=== PATIENT | male | born 1960 | race Caucasian/White ===

== ENCOUNTER 2016-03-27 07:01 | Inpatient (IN) | payer OTHER ==
--- NOTE | 2016-03-22 09:02 | PREOPHP ---
DATE OF ADMISSION: 03/27/2016 PREOPERATIVE INTERNAL MEDICINE CONSULTATION/MEDICAL HISTORY AND PHYSICAL Patient to have surgery with Dr. Armando Velazquez on 03/27/2016. REASON FOR CONSULTATION: Consultation requested by Dr. Armando Velazquez for medical evaluation and cl earance of a 55-year-old gentleman about to undergo surgery on his lumbar spine. Thank you, Dr. Velazquez, for allowing us to participate in the care of this patient. HISTORY OF PRESENT ILLNESS: Pillo Atkins, a 55-year-old gentleman, long-term problems with his back has had 2 prior back surgeries. This time will be readmitted for more definitive back surgery. Oth er than his back he has also had right shoulder surgery x3 with open surgery, left shoulder surgery x2, both arthroscopic. He has needed surgery on his right wrist following a fracture and has had silva e other fractures as well. He has had no medical hospitalizations, has been generally healthy. MEDICATIONS: Other than: 1. [place]. 2. Flexeril. 3. Gabapentin, all being taken for his pain. He takes no other chronic medications. ALLERGIES: HE IS "ALLERGIC" or SENSITIVE TO 1. CODEINE. 2. SULFA. FAMILY HISTORY: Patient's father is alive at 88 and is healthy. Mother at 67 of COPD, was a h eavy smoker. Five siblings in good health. He knows of no significant family history of diabetes, heart, cancer, hypertension or stroke. SOCIAL HISTORY: The patient is , has no children. He does not smoke. Alcohol socially. Do es not drink coffee. Has no difficulty sleeping at night other than due to his pain and works as a construction millwright. REVIEW OF SYSTEMS HEENT: Denies any significant headaches. CARDIORESPIRATORY: Denies any chest pain or shortness of breath. GASTROINTESTINAL: No melena or hematemesis. GENITOURINARY: No urgency, frequency. MUSCULOSKELETAL: Positive for back pain. NEUROPSYCHIATRIC: Unremarkable. GENERAL HEALTH: As above. PHYSICAL EXAMINATION: VITAL SIGNS: The patient's blood pressure was 104/76, pulse was 80 and regular, respirations 18, te mperature 98.3, height 5 feet 10 1/2 inches, weight 154 pounds. GENERAL: The patient was noted to be a well-developed, well-nourished male, alert and cooperative, in no apparent acute distress, oriented to time, place and person. HEAD, EARS, EYES, NOSE AND THROAT: Head was atraumatic. Eyes: Pupils were equal, reactive to ligh t and accommodation. Fundi were benign. Tympanic membranes were unremarkable. Nose was negative. Mouth was unremarkable. Fair oral hygiene was present. NECK: Supple without any rigidity. Trachea was midline. Thyroid was unremarkable. Neck veins wer e flat. Carotid pulses were equal. No bruits were heard. BACK: Unremarkable other than scar from prior surgery and some typing of his muscles. CHEST: Symmetrical. BREASTS AND AXILLARY: Did not reveal any masses. LUNGS: Clear to percussion and auscultation. HEART: PMI was 5th intercostal space at the midclavicular line. Regular sinus rhythm was noted. N o significant murmurs, rubs, or gallops being elicited. ABDOMEN: Soft, good bowel sounds were noted. No significant organomegaly, masses, or tenderness. GENITALIA: Normal male external genitalia. RECTAL AND PROSTATIC: Per PCP. EXTREMITIES: Did not reveal any clubbing, edema or cyanosis. Scar right armpit was noted from [facility] surgery. Peripheral pulses were physiologic. SKIN: Moist and warm without any eruptions. No gross lymphadenopathy was noted. NEUROLOGIC: Grossly intact. IMPRESSION 1. Lumbar disk disease L3-L4, L4-L5. 2. Degenerative joint disease. 3. Stable health. LABORATORY DATA: Review of laboratory and other data revealed the following: The patient's medical chemist ry panel revealed normal electrolytes, random glucose of 107, normal BUN and creatinine and liver fu nction tests, CBC, UA, PT, PTT were normal. The patient's EKG was normal as was his chest x-ray. DISCUSSION: Dr. Velazquez, I see no contraindication in this patient undergoing current proposed bekah meli under desired form of anesthesia and feel he is a suitable candidate at this particular point i n time, we will be more than happy to follow him with you during his stay at [facility]. Thank you again, Dr. Velazquez, for allowing us to participate in care of this patient. Dictated By: CITLALI MCKINNON/AVA Conf#: [id number] DID#: [id number]
[2016-03-27] VITALS (28 sets, daily range): BP systolic 101–149; BP diastolic 63–85; PULSE 63–108; RESP 6–19; Ht 177.8 cm; Wt 70.0 kg
[~2016-03-27] VITALS: Ht 177.8 cm; Wt 70.0 kg
[2016-03-27] MEDS ORDERED: CYCL5TAB PO (08:39)
[2016-03-27] MEDS ORDERED: GABA100C14 PO (08:39)
[2016-03-27] MEDS ORDERED: HYDR-906 PO (08:39)
[2016-03-27] MEDS ORDERED: CEFAZOLIN 2 GM/50 ML (PMX) 50 ML IVPB SCH (09:30)
[2016-03-27] MEDS ORDERED: BUPIVACAINE 0.25% (MPF) 10 ML 10 ML VIAL ONE (09:49)
[2016-03-27] MEDS ORDERED: GELATIN SIZE 100 SPONGE ONE (09:49)
[2016-03-27] MEDS ORDERED: THROMBIN 5000 UNIT VIAL ONE ×2 (09:49→13:35)
[2016-03-27] MEDS ORDERED: HEPARIN 1000 UNITS/ML 10 ML INJ ONE (09:49)
[2016-03-27] MEDS ORDERED: CEFAZOLIN 1 GM INJ ONE (09:51)
[2016-03-27] MEDS ORDERED: HYDROmorphONE 2 MG/ML SYG ONE (10:01)
[2016-03-27] MEDS ORDERED: PROPOFOL 20 ML ONE ×4 (10:01→14:03)
[2016-03-27] MEDS ORDERED: MIDAZOLAM 1 MG/ML 2 ML INJ ONE (10:01)
[2016-03-27] MEDS ORDERED: ROCURONIUM 50 MG INJ ONE ×2 (10:01→10:49)
[2016-03-27] MEDS ORDERED: ONDANSETRON 4 MG INJ ONE ×2 (10:02→16:26)
[2016-03-27] MEDS ORDERED: METOPROLOL 5 MG INJ ONE (10:27)
[2016-03-27] MEDS ORDERED: LABETALOL HCL 20MG INJ ONE (11:14)
[2016-03-27] MEDS ORDERED: hydrALAzine 20 MG INJ ONE (11:20)
[2016-03-27] MEDS ORDERED: FENTAnyl 50 MCG/ML VIAL ONE (11:20)
[2016-03-27] MEDS ORDERED: MEPERIDINE 25 MG INJ ONE (16:24)
[2016-03-27] MEDS ORDERED: HYDROmorphONE (0.2 MG/ML) 10ML SYG IV ONE (16:24)
--- NOTE | 2016-03-27 16:24 | RADRPT ---
PROCEDURE: Intraoperative imaging of the lumbar spine with fluoroscopy. CLINICAL INDICATION: Back pain. Intraoperative. TECHNIQUE: 3 images of the lumbar spine were obtained in the operating room with an image intensif ier. No radiologist was in attendance. 52.8 seconds of fluoroscopy time was used. COMPARISON: No prior study is available for comparison. FINDINGS: For the purposes of this report, the last apparent true disc level is considered to be L5-S1. Based on this, images demonstrate posterior fusion with pedicle screws and connecting rods at L3, L4, L5. Intervertebral cages are present at L3-4 and L4-5. IMPRESSION: 1. Intraoperative imaging of the lumbar spine. RPTAT: QQ .Jaime Murray MD, Date Time Electronically viewed and signed by .Jaime Murray MD, on 03/27/2016 16:24 .R/
[2016-03-27] MEDS ORDERED: MEPERIDINE 25 MG INJ IV PRN (16:30)
[2016-03-27] MEDS ORDERED: HYDROmorphONE (0.2 MG/ML) 10ML SYG IV PRN (16:30)
[2016-03-27] MEDS ORDERED: ONDANSETRON 4 MG INJ IV PRN ×2 (16:30→17:00)
[2016-03-27] MEDS ORDERED: METOCLOPRAMIDE 10 MG INJ IV PRN (16:30)
[2016-03-27] MEDS ORDERED: LABETALOL HCL 20MG INJ IV PRN (16:30)
[2016-03-27] MEDS ORDERED: hydrALAzine 20 MG INJ IV PRN (16:30)
[2016-03-27] MEDS ORDERED: DIPHENHYDRAMINE 50 MG INJ IV PRN (16:30)
[2016-03-27] MEDS: DEXTROSE 5%-0.45% NACL 1,000 ML IV SCH (16:32)
[2016-03-27] MEDS: HYDROmorphONE (0.2 MG/ML) 10ML SYG IV PRN ×4 (16:36→17:13)
[2016-03-27] MEDS ORDERED: DIAZEPAM 5 MG/ML SYG IM PRN (17:00)
[2016-03-27] MEDS ORDERED: TRIMETHOBENZAMIDE 100 MG/ML VIAL IM PRN (17:00)
[2016-03-27] MEDS ORDERED: NACL 0.9% 3 ML SYG IV SCH (17:00)
[2016-03-27] MEDS ORDERED: CEPASTAT LOZENGE MT PRN (17:00)
[2016-03-27] MEDS ORDERED: PROCHLORPERAZINE 10 MG TAB PO PRN (17:00)
[2016-03-27] MEDS ORDERED: AL HYDROX/MG HYDROX/SIMETH 30 ML CUP PO PRN (17:00)
[2016-03-27] MEDS ORDERED: HYDROCODONE/APAP (5/325) TAB PO PRN (17:00)
[2016-03-27] MEDS ORDERED: HYDROmorphONE 0.2 MG/ML PCA IV SCH (17:00)
[2016-03-27] MEDS ORDERED: DIPHENHYDRAMINE 50 MG CAP PO PRN (17:00)
[2016-03-27] MEDS ORDERED: NALOXONE (0.4 MG/ML) INJ IV PRN (17:00)
[2016-03-27] MEDS ORDERED: ACETAMINOPHEN 325 MG TAB PO PRN (17:00)
[2016-03-27] MEDS ORDERED: ZOLPIDEM 5 MG TAB PO PRN (17:00)
[2016-03-27] MEDS ORDERED: BETHANECHOL 25 MG TAB PO PRN (17:00)
--- NOTE | 2016-03-27 17:33 | CONS ---
DATE OF ADMISSION: 03/27/2016 DATE OF CONSULTATION: 03/27/2016 HISTORY OF PRESENT ILLNESS: Patient seen in the recovery room, arousable, not terribly alert as yet , but definitely arousable. PHYSICAL EXAMINATION VITAL SIGNS: Blood pressure of 108/65, pulse 72, respirations 16, temperature 98.8, O2 saturation 9 8% HEENT: Unremarkable. LUNGS: Clear. HEART: Regular rhythm. IMPRESSION 1. Status post lumbar spine surgery, L3-L4, L4-L5. 2. History of degenerative joint disease. 3. Stable health. DISCUSSION PLAN: Basic management, per Dr. Uribe and we will follow him along with you from a me dical standpoint during his stay at [facility]. Thank you again, Dr. Uribe, for allowing us to participate in the care of this patient. Dictated By: CITLALI FRASER MD SS/NTS Conf#: [id number] DID#: [id number] CC: JESSICA URIBE MD;*EndCC*
--- NOTE | 2016-03-27 17:44 | OPR ---
DATE OF OPERATION: 03/27/2016 PREOPERATIVE DIAGNOSIS: Degenerative disk disease at L3-4 and L4-L5 with foraminal stenosis and pos tsurgical changes. POSTOPERATIVE DIAGNOSIS: Degenerative disk disease at L3-4 and L4-L5 with foraminal stenosis and po stsurgical changes. OPERATION PERFORMED: 1. Transforaminal lumbar interbody fusion, L3-L4. 2. Transforaminal lumbar interbody fusion, L4-L5. 3. Segmental spinal fixation from L3-L5 using bilateral Alphatec pedicle screws and rods from L3-L5 . 4. Redo decompressive laminectomy at L3 and L4. 5. Placement of interbody cages at L3-L4 and L4-L5 with BMP (bone morphogenic protein) and local marcelino ne graft. 6. Revision of scar (15 cm). 7. AP and lateral intraoperative fluoroscopy. 8. Intraoperative nerve monitoring (6-1/2 hours) SURGEON: Armando Velazquez MD NEWS SPECIALIST: SHAYY Ferris ANESTHESIA: General endotracheal by Dr. Ulloa ESTIMATED BLOOD LOSS: 500 mL, none replaced. DRAINS: Two medium Hemovac drains employed. COMPLICATIONS: None. PERTINENT HISTORY AND PHYSICAL: This is a 55-year-old male who sustained an injury to his back in [employer] course of employment on 05/16/2010. He has had extensive care since that time, remains highly sy mptomatic with pain in his back and weakness and numbness in his left leg along with pain in his lef t leg. Treatment options were discussed with the patient, who elected to proceed with surgery. OPERATIVE FINDINGS AT SURGERY: Degenerative disk changes at L3-4 and L4-L5 with foraminal stenosis bilaterally was confirmed. The baseline intraoperative nerve monitoring revealed a decrease in the L2 potentials bilaterally of 10%, the L3 potentials bilaterally of 30%, the L4 potential on the left of 50%, the L4 potential on the right of 30%, the L5 potential on the left of 70%, the L5 potential on the right of 50%, and the S1 potentials bilaterally of 40%. At the completion of the surgery, t he nerve signals had improved to normal with exception of the left L5 nerve, which was still down 20 %, and there was no change in the S1 nerve potentials bilaterally. OPERATIVE PROCEDURE: With the patient in supine position after satisfactory induction of general en dotracheal anesthesia by Dr. Ulloa, the patient was positioned in the prone position on the rad iolucent Femi frame atop the OSI fluoroscopic table. All pressure points were carefully padded. Back was prepped and draped in usual sterile fashion. Athrombic pumps were applied to the legs belo w the knees to prevent venous stasis during and after the procedure. An indwelling Monet catheter w as also placed preoperatively to facilitate bladder drainage during and after the procedure. A 15 c m incision was made through the previous scar from L3 to L5 through skin and subcutaneous tissue to the deep fascia. Superficial retractors were placed and hemostasis secured with electrocautery. Th roughout the procedure, copious amounts of antibacterial irrigating solution were used to periodical ly irrigate the wound. The fascia was incised in midline with a hot knife and a bilateral subperios teal dissection carried out at L2 and L5. The spinous processes of L3 and L4 were absent from previ ous surgery. The dissection was then carried out to the lateral aspects of the canal and the facet joints at L3-4 and L4-5 bilaterally. Deep retractors were placed and deep hemostasis secured with e lectrocautery. An intraoperative lateral image was taken with the fluoroscope with a Aziza clamp p laced in what was felt to be the spinous process of L2 and L5. This was confirmed on the image. Wi th this having been assured, a subtotal facetectomy was carried out at L3-L4 bilaterally and L4-5 on the left. The operating microscope then moved into place. The L5 root was mobilized medially on t he left and protected with Boubacar nerve root retractor using microdissection technique. A 15 blad e knife used to cut a rectangular window in the annulus and posterior longitudinal ligament and mult iple degenerative disk fragments were harvested with pituitary rongeurs and sent to laboratory for p athologic study. The Alphatec disk hector were then inserted into the wound, starting with a 6 mm shaver and working up to a 10 mm shaver. The 6, 7, 8, 9, and subsequently 10 mm trials were then in serted into the disk space. The Alphatec rasps were then used to abrade the cartilaginous endplates down to subchondral bone. A 10 mm lordotic PEEK cage that was filled with half of a small bone mor phogenic protein pledget was placed into the disk space under direct vision after multiple morselize d pieces of bone were placed in the anterior aspect of the disk space. Attention then turned to the L3-4 disk where the identical procedure was carried out. However, at this level, an 11 mm lordotic PEEK cage was inserted into the disk space after multiple morselized pieces of bone were packed int o the anterior aspect of the disk space as well. The remaining half of the small unit of bone morph ogenic protein was placed into the cage at L3-4 and inserted into the disk space under direct vision . The position of the implants was monitored with AP and lateral intraoperative fluoroscopy. It wa s noted that the L4-5 implant was slightly tilted and probably embedded into the superior endplate o f L5. However, it appeared to be stable and did not merit removal. The pedicles of L3, L4, and L5 were then identified and then Alphatec variable angle, 5.5 mm wide x 40 mm long pedicle screws were placed into the pedicles of L3, L4, and L5 bilaterally. The Femi frame was lowered to its most co llapsed position and the 80 mm Alphatec lordotic rods were then placed into the tulip heads of the s crews from L3-L5. The L5 screws were secured initially with the torque wrench to factory specificat ions, and the remaining screws were secured sequentially while the construct was held in compression . At the completion of implantation, the AP and lateral final images were taken with the fluoroscop y machine. The anesthesiologist was then asked to perform a Valsalva maneuver at 40 mmHg. No spina l fluid leakage was noted. The redo decompressive laminectomy was carried out early in the procedur e to remove scar and remaining bone at L3 and L4 to facilitate the access to the canal. Evicel was then placed into the posterior aspect of the disk spaces at L3-4 and L4-5 to minimize the likelihood of extravasation of the bone morphogenic protein. The wound was then closed over 2 medium Hemovac drains, one below the fascia and one above the fascia, using #1 Stratafix sutures on the deep paralu mbar musculature and deep fascia of the back, 2-0 Stratafix sutures in subcutaneous tissue, and a 4- 0 Vicryl subcuticular cosmetic closing suture on the skin. Dermabond and sterile compressive dressi ngs were applied. The patient, having tolerated procedure well, was then turned to supine position onto his bed and extubated by Dr. Ulloa. He was transported to recovery room in psychiatric ondition. At the conclusion of the procedure, sponge, instrument, and needle counts were all correc t. NEED FOR INVESTMENT REPRESENTATIVE: During this spinal surgical procedure, my reading assistant was used to retrac t and protect the spinal nerves and dural sac. My reading assistant also employed the suction catheters to evacuate blood from the surgical field to improve visualization of the neural structures. The suzanna tant was medically necessary to facilitate the completion of the surgery in a safe and expeditious [facility]. [facility] regulations, as well as hospital bylaws, preclude the use of non-license d health care personnel such as operating room technicians, to perform these functions. Throughout the procedure, neural monitoring was carried out by [employer] including EMG, SSEP, and MEP monitoring of the L2, L3, L4, L5, and S1 nerve roots bilaterally along with spinal cord potentials. These were interpreted by neurologist employed by [employer]. Dictated By: ARMANDO VELAZQUEZ MD TM/NTS Conf#: [id number] DID#: [id number] CC: CITLALI FRASER MD; ARMANDO VELAZQUEZ MD;*[facility]*
[2016-03-27] MEDS: CEFAZOLIN 1 GM/50 ML (PMX) 50 ML IVPB SCH (19:36)
[2016-03-27] MEDS: RANITIDINE 150 MG TAB PO SCH (20:34)
[2016-03-28 00:01] VITALS: BP 117/64; RESP 20
[2016-03-28 00:30] VITALS: BP 119/73; PULSE 97; RESP 16
[2016-03-28] MEDS: CEFAZOLIN 1 GM/50 ML (PMX) 50 ML IVPB SCH ×3 (00:50→12:19)
[2016-03-28] MEDS: DEXTROSE 5%-0.45% NACL 1,000 ML IV SCH (00:51)
[2016-03-28 05:00] VITALS: BP 108/70; PULSE 84; RESP 16
[2016-03-28] MEDS: DIAZEPAM 5 MG TAB PO PRN ×2 (05:07→21:48)
[2016-03-28 06:31] LABS: HEMOGLOBIN 9.7 g/dl (14.0-18.0)
[2016-03-28 06:36] LABS: CREATININE 0.82 mg/dl (0.61-1.24)
[2016-03-28 06:37] LABS: CALCIUM 7.8 mg/dl (8.4-10.2)
--- NOTE | 2016-03-28 07:12 | PN ---
Date/Time of Note Date/Time of Note DATE: 03/28/16 TIME: 07:09 Assessment/Plan Lines/Catheters IV Catheter Type (from Nrs): Peripheral IV Monet in Place (from Nrs): Yes Subjective 24 Hr Interval Summary Patient is postop day #1 from 2 level lumbar interbody fusion L3-4 and L4-5. He is alert and doing well. He is afebrile, hemoglobin is 9.7 Hemovac drain was 160cc and this will be left in place today. Patient will progress ambulation with physical therapy. We will d/c [employer] and remove Monet. Exam/Review of Systems Vital Signs Vitals Vital Signs Date Time Temp Pulse Resp B/P Pulse Ox O2 Delivery O2 Flow Rate FiO2 03/28/16 05:00 16 03/28/16 05:00 97.7 84 108/70 99 Room Air 03/27/16 22:40 2.0 Intake and Output 03/27/16 03/27/16 03/28/16 15:00 23:00 07:00 Intake Total 2750 ml 650 ml Output Total 20 ml 1060 ml 660 ml Balance -20 ml 1690 ml -10 ml Results Result Diagram: 03/28/16 0524 03/28/16 0524 ANTHONY CASANOVA Mar 28, 2016 07:12
[2016-03-28] MEDS ORDERED: BETHANECHOL 25 MG TAB PO PRN (08:00)
[2016-03-28 08:25] VITALS: BP 99/71; RESP 18
[2016-03-28] MEDS: DOCUSATE SODIUM 100 MG CAP PO SCH ×2 (08:57→20:41)
[2016-03-28] MEDS: ASCORBIC ACID 500 MG TAB PO SCH ×2 (08:58→20:42)
[2016-03-28] MEDS: HYDROCODONE/APAP (5/325) TAB PO PRN ×3 (08:58→20:41)
[2016-03-28] MEDS: RANITIDINE 150 MG TAB PO SCH ×2 (08:58→20:41)
[2016-03-28] MEDS: FERROUS SULFATE (EC) 325 MG TAB PO SCH ×3 (08:58→20:41)
--- NOTE | 2016-03-28 10:26 | CONS ---
DATE OF ADMISSION: 03/27/2016 DATE OF CONSULTATION: 03/28/2016 TIME OF VISIT: Approximately 7:40 a.m. The patient is alert, on the phone at the time of my entrance into the room; comfortable, still comp laining of some pain, but sensation down his leg is gone, in terms of pain and feeling better in camila t respect. PHYSICAL EXAMINATION VITAL SIGNS: Revealed the following: Blood pressure 108/70, pulse 84, respirations 16, temperature 97.7, O2 saturation 99% on room air. HEENT: Unremarkable. LUNGS: Clear. CARDIOVASCULAR: Regular rhythm. ABDOMEN: Unremarkable. IMPRESSION 1. Status post lumbar spine surgery. 2. Chronic pain syndrome. 3. Stable health. DISCUSSION: Review of laboratory and other data reveals the following: The patient's hemoglobin is 9.7, hematocrit of 28. The patient's chemistries revealed normal electrolytes, BUN, creatinine and glucose. Plan, per Dr. Velazquez, will be ambulating today. Will discontinue his IV and other appr opriate measures, and hopefully patient will tolerate all of that well. Thank you again, Dr. Velazquez, for allowing us to participate in the care of this patient. Dictated By: CITLALI MCKINNON/AVA Conf#: [id number] DID#: [id number]
[2016-03-28 17:07] LABS: ADD UMIC YES; URINE BILIRUBIN (Dip) NEGATIVE (NEGATIVE); URINE BLOOD (Dip) 2+ (NEGATIVE); URINE COLOR LT. YELLOW (YELLOW); URINE GLUCOSE (Dip) NEGATIVE (NEGATIVE); URINE KETONES (Dip) NEGATIVE (NEGATIVE); URINE LEUKOCYTE ESTERASE (Dip) NEGATIVE (NEGATIVE); URINE NITRITE (Dip) NEGATIVE (NEGATIVE); URINE TOTAL PROTEIN (Dip) NEGATIVE (NEGATIVE); URINE UROBILINOGEN (Dip) 0.2 E.U./dL (0.1-1.0)
[2016-03-28 18:08] LABS: BACTERIA,URINE FEW; MUCUS,URINE MODERATE
[2016-03-28 19:49] VITALS: BP 121/78
--- NOTE | 2016-03-29 07:08 | PN ---
Date/Time of Note Date/Time of Note DATE: 03/29/16 TIME: 07:06 Assessment/Plan Lines/Catheters IV Catheter Type (from Nrsg): Saline Lock Monet in Place (from Nrsg): No Subjective 24 Hr Interval Summary The patient is postop day #2 following a 2 level redo fusion from L3-L5 with internal fixation. He is afebrile. He is comfortable on oral medications. His examination today reveals neurovascular structures to be intact distally. He did well with physical therapy yesterday. He has 80 cc and his Hemovac since midnight, and I will observe its output during the day. If he is cleared by physical therapy for discharge and his Hemovac slows down, he is likely going to be discharged home later today. He was given strict discharge instructions and precautions. Exam/Review of Systems Vital Signs Vitals Vital Signs Date Time Temp Pulse Resp B/P Pulse Ox O2 Delivery O2 Flow Rate FiO2 03/28/16 19:49 98.7 85 121/78 19 03/28/16 08:25 18 03/28/16 05:00 Room Air 03/27/16 22:40 2.0 Intake and Output 03/28/16 03/28/16 03/29/16 15:00 23:00 07:00 Intake Total 1500 ml 500 ml Output Total 1940 ml Balance -440 ml 500 ml Results Result Diagram: 03/28/16 0524 03/28/16 0524 JESSICA URIBE MD Mar 29, 2016 07:07
[2016-03-29 07:43] VITALS: BP 136/82; RESP 18
--- NOTE | 2016-03-29 08:52 | CONS ---
DATE OF ADMISSION: 03/27/2016 DATE OF CONSULTATION: POSTOPERATIVE CONSULTATION FOLLOWUP The patient was seen at approximately 7:40 a.m. HISTORY OF PRESENT ILLNESS: The patient had a relatively good night, was able to get out of bed and walk around; however, some nausea, probably secondary to his pain medications, which he has discont inued. PHYSICAL EXAMINATION: VITAL SIGNS: The patient's vital signs reveal a blood pressure of 136/82, pulse of 84, respirations 18, temperature 98.3, O2 saturation 96% on room air. HEENT: Unremarkable. LUNGS: Clear. HEART EXAM: Reveals a regular rhythm. ABDOMINAL EXAM: Slight bloating, otherwise unremarkable. IMPRESSION: 1. Status post lumbar spine surgery. 2. History of degenerative joint disease and nausea, probably secondary to pain medications. DISCUSSION: The patient from a medical standpoint seems to be relatively stable. His laboratory re veals a hemoglobin of 9.7, hematocrit of 28. His Chem-7 is within normal limits. PLAN: Per Dr. Velazquez, he will be ambulating more today and drain possibly pulled today. If nausea does persist, we can prescribe something for his nausea. Thank you again, Dr. Velazquez, for allowing us to participate in the care of this patient. Dictated By: CITLALI MCKINNON/AVA Conf#: [id number] DID#: [id number]
[2016-03-29] MEDS: RANITIDINE 150 MG TAB PO SCH (10:10)
[2016-03-29] MEDS: FERROUS SULFATE (EC) 325 MG TAB PO SCH ×2 (10:10→13:49)
[2016-03-29] MEDS: DOCUSATE SODIUM 100 MG CAP PO SCH (10:10)
[2016-03-29] MEDS: ASCORBIC ACID 500 MG TAB PO SCH (10:10)
[2016-03-29] MEDS: HYDROCODONE/APAP (5/325) TAB PO PRN (14:07)
[2016-03-29] MEDS ORDERED: THROMBIN(HUM PLAS)/FIBRINOG/CA 5 ML VIAL TOP ONE (14:58)
[2016-03-29] MEDS ORDERED: BISACODYL 10 MG SUPP PR ONE (15:30)
[2016-03-29] MEDS ORDERED: NA PHOSPHATE/BIPHOS 133 ML ENEMA PR PRN (17:00)
--- NOTE | 2016-03-29 17:26 | PN ---
Date/Time of Note Date/Time of Note DATE: 03/29/16 TIME: 17:24 Assessment/Plan Lines/Catheters IV Catheter Type (from Nrsg): Saline Lock Monet in Place (from Nrsg): No Subjective 24 Hr Interval Summary Patient is postop day #2 following a 2 level redo laminectomy and instrumented fusion from L3-L5. When seen this morning, he had significant amount of drainage in his Hemovac. He now has minimal drainage from the Hemovac, and it was discontinued using aseptic technique. His wound is clean and dry. It was redressed. He is being discharged home. He was given strict discharge precautions and instructions to remain sedentary except for walking a mile a day in divided increments. He is to take his temperature twice daily and report any fever over 100F or any chills sweats or drainage from his incision. He was given back instructions sheets for his information. He is to wear his rigid back brace whenever out of bed. He will follow-up in the office in 1-2 weeks. Discharge medications are [place] 1 or 2 every 4 hours every 4 hours as needed pain Exam/Review of Systems Vital Signs Vitals Vital Signs Date Time Temp Pulse Resp B/P Pulse Ox O2 Delivery O2 Flow Rate FiO2 03/29/16 07:43 98.3 84 18 136/82 96 03/28/16 05:00 Room Air 03/27/16 22:40 2.0 Intake and Output 03/28/16 03/28/16 03/29/16 15:00 23:00 07:00 Intake Total 1500 ml 500 ml Output Total 1940 ml Balance -440 ml 500 ml Results Result Diagram: 03/28/16 0524 03/28/16 0524 JESSICA URIBE MD Mar 29, 2016 17:26
== END 2016-03-29 19:00 | disposition home or self-care (01) | DRG 460 ==
LOC: REC 07:01 → MS1 18:25
PROVIDERS: ADMIT Orthopaedic Surgery; ATTEND Orthopaedic Surgery
PROC: 0SB20ZZ Excision of Lumbar Vertebral Disc, Open Approach (ICD-10-PCS; 2016-03-27)
PROC: 0SG10AJ Fusion of 2 or more Lumbar Vertebral Joints with Interbody Fusion Device, Posterior Approach, Anterior Column, Open Approach (ICD-10-PCS; principal; 2016-03-27 10:00)
DX: M51.36 Other intervertebral disc degeneration, lumbar region (principal); M48.06 Spinal stenosis, lumbar region; Z88.5 Allergy status to narcotic agent; Z88.2 Allergy status to sulfonamides
CPT/HCPCS: 72100; 80048; 81001; 81003; 85014; 85018; 86850; 86900; 86901; 86920; 87086; 97116; 97162; 97530; C1713; J0360; J0690; J1170; J1644; J2175; J2250; J2405; J3010; L8699